=== PATIENT | female | born 1985 | race Caucasian/White ===

== ENCOUNTER → 2025-06-27 | Outpatient (CLI) | payer MEDICAID, SELFPAY ==
--- NOTE | 2025-06-27 08:57 | XR_ITS ---
Examination: Esophagram standard Fluoroscopy Upright PA chest single view Upright soft tissue lateral neck single view 17 spot fluoroscopic films of the esophagus Date and time: June 27, 2025 0926 hours INDICATIONS: Throat discomfort difficulty swallowing 3 weeks. TECHNIQUE AND FINDINGS: Upright PA chest single view demonstrates normal heart size lungs are clear Soft tissue lateral neck demonstrates normal epiglottis Patient swallowed thin barium with primary peristaltic esophageal waves noted Moderate continuous gastroesophageal reflux Moderate sliding esophageal hernia No stricture involving the esophagus Impression:: Moderate esophageal reflux Fluoroscopy 0.19 minutes, 17 spot fluoroscopic films of the esophagus
== END | disposition home or self-care (01) ==
PROVIDERS: PCP Family Medicine; Referring Provider Family Medicine; Visit Provider Family Medicine
DX: K21.9 Gastro-esophageal reflux disease without esophagitis (principal)
CPT/HCPCS: 74220; A4649

== ENCOUNTER → 2025-08-29 | Outpatient (CLI) | payer MEDICAID, SELFPAY ==
[2025-08-25 08:55] LABS: HCG Qualitative,Urine Negative
--- NOTE | 2025-08-29 08:30 | XR_ITS ---
Examination: CT abdomen with intravenous contrast CT pelvis with intravenous contrast 2-D coronal reconstructions 2-D sagittal reconstructions Date and time of exam: August 29, 2025, 0851 hours, comparison September 21, 2017 INDICATIONS: Diagnosis post thrombotic syndrome, abdominal pain months. CTDI: vol (mGy) 16.6 DLP: (mGycm) 1105 Technique: Multiple axial sections of the abdomen and pelvis have been obtained. 64 slice high-resolution scanner used. 3 mm axial sections have been obtained, post intravenous injection of 60 cc [id number] 2-D sagittal, coronal reconstructions obtained. Low dose protocols were performed. One or more of the following dose reduction techniques were used; automated exposure control, adjustment of the mA and/or KV according to patient size, use of iterative reconstruction technique. Findings: Gastric sutures No focal liver or splenic lesion Absent gallbladder No pancreatic mass No renal or ureteral calculi, no hydronephrosis Left common iliac external iliac vein stent No abdominal or pelvic mass Anteverted uterus Contracted urinary bladder IMPRESSION: No acute process in the abdomen or pelvis
== END | disposition home or self-care (01) ==
PROVIDERS: Referring Provider Radiology Vascular & Interventional Radiology; Visit Provider Radiology Vascular & Interventional Radiology
DX: I87.009 Postthrombotic syndrome without complications of unspecified extremity (principal); Z32.00 Encounter for pregnancy test, result unknown
CPT/HCPCS: 74177; 81025; A4649; Q9967